=== PATIENT | female | born 2000 | race Caucasian/White ===

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

== ENCOUNTER → 2018-03-13 | Outpatient (CLI) | payer OTHER ==
[2018-03-13 11:55] LABS: BASO # 0.1 10^3/uL (0.0-0.2); BASO % 1.1 % (0.0-1.0); EOS # 0.1 10^3/uL (0.0-0.50); EOS % 3.2 % (0.0-3.0); HEMATOCRIT 37.6 % (36.0-47.0); HEMOGLOBIN 12.1 g/dl (12.0-15.5); IMMATURE GRANULOCYTE % 0.2 % (0-3.0); LYMPH # 1.6 10^3/uL (1.5-6.5); LYMPH % 35.4 % (24.0-44.0); MEAN CORPUSCULAR HEMOGLOBIN 27.8 pg (27.0-33.0); MEAN CORPUSCULAR HGB CONC 32.2 g/dl (32.0-36.5); MEAN CORPUSCULAR VOLUME 86.2 fl (80.0-96.0); MONO # 0.3 10^3/uL (0.0-0.8); MONO % 6.3 % (0.0-5.0); NEUTROPHILS # 2.4 10^3/uL (1.8-7.7); NEUTROPHILS % 53.8 % (36.0-66.0); PLATELET COUNT, AUTOMATED 366 10^3/uL (150-450); RED BLOOD COUNT 4.36 10^6/uL (4.00-5.40); RED CELL DISTRIBUTION WIDTH 14.1 % (11.5-14.5); WHITE BLOOD COUNT 4.4 10^3/uL (4.0-10.0)
[2018-03-13 12:32] LABS: ALBUMIN 4.1 GM/DL (3.2-5.2); ALBUMIN/GLOBULIN RATIO 1.08 (1.00-1.93); ALKALINE PHOSPHATASE 76 U/L (45-117); ALT/SGPT 28 U/L (12-78); ANION GAP 7 MEQ/L (8-16); AST/SGOT 18 U/L (7-37); BILIRUBIN,TOTAL 0.4 MG/DL (0.2-1.0); BLOOD UREA NITROGEN 11 MG/DL (7-18); CALCIUM LEVEL 9.6 MG/DL (8.5-10.1); CARBON DIOXIDE LEVEL 28 MEQ/L (21-32); CHLORIDE LEVEL 110 MEQ/L (98-107); CREATININE FOR GFR 0.74 MG/DL (0.55-1.30); GLUCOSE, FASTING 94 MG/DL (70-100); POTASSIUM SERUM 4.3 MEQ/L (3.5-5.1); SODIUM LEVEL 145 MEQ/L (136-145); THYROID STIMULATING HORMONE 0.455 uIU/ML (0.463-3.98); TOTAL PROTEIN 7.9 GM/DL (6.4-8.2)
[2018-03-15 00:07] LABS: UNITSIGA FOR GLIADIN IGA 6 units (0-19); UNITSIGG FOR GLIADIN IGG 2 units (0-19)
== END ==
LOC: M LAB 11:00
DX: R19.7 Diarrhea, unspecified (principal)
CPT/HCPCS: 84443

== ENCOUNTER → 2018-03-15 | Outpatient (CLI) | payer OTHER ==
[2018-03-15 15:00] LABS: THYROGLOBULIN ANTIBODY 33.1 U/ML (<60.0)
[2018-03-18 08:24] LABS: THYROID BINDING GLOBULIN 14 ug/mL (13-39)
[2018-03-18 08:24] LABS: TSH RECEPTOR ASSAY <0.50 IU/L (0.00-1.75)
== END ==
LOC: M LAB 14:04
DX: R94.6 Abnormal results of thyroid function studies (principal)
CPT/HCPCS: 84443

== ENCOUNTER → 2019-03-01 | Outpatient (CLI) | payer OTHER ==
[2019-03-01 11:44] LABS: BASO % 0.9 % (0.0-1.0); EOS # 0.1 10^3/uL (0.0-0.50); HEMATOCRIT 36.8 % (36.0-47.0); HEMOGLOBIN 12.4 g/dl (12.0-15.5); LYMPH # 1.4 10^3/uL (1.5-6.5); LYMPH % 30.8 % (24.0-44.0); MEAN CORPUSCULAR HEMOGLOBIN 29.5 pg (27.0-33.0); MEAN CORPUSCULAR HGB CONC 33.7 g/dl (32.0-36.5); MEAN CORPUSCULAR VOLUME 87.4 fl (80.0-96.0); MONO # 0.3 10^3/uL (0.0-0.8); MONO % 7.3 % (0.0-5.0); NEUTROPHILS # 2.7 10^3/uL (1.8-7.7); NEUTROPHILS % 58.8 % (36.0-66.0); PLATELET COUNT, AUTOMATED 315 10^3/uL (150-450); RED BLOOD COUNT 4.21 10^6/uL (4.00-5.40); WHITE BLOOD COUNT 4.5 10^3/uL (4.0-10.0)
[2019-03-01 12:09] LABS: ERYTHROCYTE SEDIMENTATION RATE 22 mm/hr (0-20)
[2019-03-01 12:20] LABS: ALBUMIN 3.9 GM/DL (3.2-5.2); ALT/SGPT 16 U/L (12-78); BILIRUBIN,TOTAL 0.3 MG/DL (0.2-1.0); BLOOD UREA NITROGEN 8 MG/DL (7-18); CALCIUM LEVEL 9.5 MG/DL (8.5-10.1); CARBON DIOXIDE LEVEL 26 MEQ/L (21-32); CHLORIDE LEVEL 108 MEQ/L (98-107); CREATININE FOR GFR 0.73 MG/DL (0.55-1.30); FOLATE 16.5 NG/ML; GLUCOSE, FASTING 84 MG/DL (70-100); POTASSIUM SERUM 4.5 MEQ/L (3.5-5.1); RHEUMATOID FACTOR QUANT < 10.0 IU/ML (<15.0); SODIUM LEVEL 139 MEQ/L (136-145); THYROID STIMULATING HORMONE 0.639 uIU/ML (0.463-3.98); TOTAL PROTEIN 7.8 GM/DL (6.4-8.2); VITAMIN B12 LEVEL 377 PG/ML
[2019-03-06 11:12] LABS: DRVV SCREEN 36.7 SEC
[2019-03-06 11:23] LABS: PTT LUPUS TYPE ANTICOAG SCREEN 0.9 (0-1.2)
[2019-03-06 12:43] LABS: ALBUMIN 4.38 GM/DL (3.29-5.55); ALBUMIN % 56.1 % (55.8-66.1); ALPHA-1-GLOBULIN % 4.5 % (2.9-4.9); ALPHA-1-GLOBULINS 0.35 GM/DL (0.17-0.41); ALPHA-2-GLOBULINS 0.91 GM/DL (0.42-0.99); ALPHA-2-GLOBULINS % 11.7 % (7.1-11.8); BETA-1-GLOBULINS 0.55 GM/DL (0.28-0.60); BETA-2-GLOBULINS 0.48 GM/DL (0.19-0.55); BETA-2-GLOBULINS % 6.2 % (3.2-6.5); GAMMA GLOBULIN % 14.5 % (11.1-18.8); GAMMA GLOBULINS 1.13 GM/DL (0.65-1.58)
== END ==
LOC: M LAB 10:35
PROVIDERS: ATTEND Psychiatry & Neurology Neurology
DX: G62.9 Polyneuropathy, unspecified (principal); H53.2 Diplopia

== ENCOUNTER → 2020-01-28 | Outpatient (REF) | payer OTHER ==
[2020-01-28 16:30] LABS: HEPATITIS B SURFACE ANTIGEN NEGATIVE (NEGATIVE); HEPATITIS C VIRUS ABY INDEX 0.3 INDEX (<0.8); HIV 1&2 SCREEN CENTAUR NEGATIVE (NEGATIVE)
[2020-01-28 16:55] LABS: CHLAMYDIA DNA AMPLIFICATION NEGATIVE (NEGATIVE); GC DNA AMPLIFICATION NEGATIVE (NEGATIVE)
== END ==
LOC: M PLALAB 11:27
PROVIDERS: ATTEND Advanced Practice Midwife
DX: Z70.8 Other sex counseling (principal)

== ENCOUNTER 2020-05-09 15:55 | Emergency (ER) | payer OTHER ==
[~2020-05-09] VITALS: Ht 175.3 cm; Wt 79.5 kg
[2020-05-09] MEDS ORDERED: VALA1TAB5 (16:04)
[2020-05-09] MEDS ORDERED: BACT800T5 PO (16:58)
[2020-05-09 17:08] VITALS: BP 118/63
== END 2020-05-09 17:17 | disposition home or self-care (01) ==
LOC: M ED 15:55
DX: L05.01 Pilonidal cyst with abscess (principal); Z88.1 Allergy status to other antibiotic agents

== ENCOUNTER 2020-05-11 08:59 | Emergency (ER) | payer OTHER ==
[~2020-05-11] VITALS: Ht 175.3 cm; Wt 79.3 kg
[~2020-05-11 08:59] MED LIST: BACT800T5 PO; VALA1TAB5
[2020-05-11] MEDS ORDERED: LIDOCAINE 2% MDV 20ML VIAL SC ONE (10:15)
[2020-05-11 11:15] VITALS: BP 128/83
== END 2020-05-11 11:16 | disposition home or self-care (01) ==
LOC: M ED 08:59
DX: L05.01 Pilonidal cyst with abscess (principal); Z88.1 Allergy status to other antibiotic agents